=== PATIENT | female | born 1935 | race Caucasian/White ===

== ENCOUNTER 2016-04-21 12:50 | Observation (INO) | payer MEDICARE, OTHER ==
[2016-04-21] MEDS ORDERED: INFLUENZA ADLT QUAD (36MOS+) 2016-17 VAC 0.5 ML SYR IM PRN (13:34)
[2016-04-21] MEDS ORDERED: FUROSEMIDE INJ/PF 40 MG/4 ML SDV IV ONE (14:00)
[2016-04-21] MEDS ORDERED: DEXTROSE 40% GEL 15 GM TUBE PO PRN (14:21)
[2016-04-21] MEDS ORDERED: DEXTROSE 40% GEL 15 GM TUBE X 2 PO PRN (14:21)
[2016-04-21] MEDS ORDERED: DEXTROSE 50%-WATER SYRINGE 12.5 GM/25 ML DOSE IV PRN (14:21)
[2016-04-21] MEDS ORDERED: INSULIN LISPRO 100 UNIT/ML 3 ML VIAL SUBCUT PRN (14:21)
[2016-04-21] MEDS ORDERED: GLUCAGON,HUMAN RECOMB 1 MG INJ IM PRN (14:21)
[2016-04-21] MEDS ORDERED: DEXTROSE 50%-WATER SYRINGE 25 GM/50 ML DOSE IV PRN (14:21)
[2016-04-21] MEDS ORDERED: LANSOPRAZOLE 30 MG TAB.RAP.DR PO ONE (15:00)
[2016-04-21] MEDS ORDERED: ENOXAPARIN SODIUM INJ 40 MG/0.4 ML DISP.SYRIN SUBCUT ONE (15:00)
[2016-04-21 15:07] LABS: ABSOLUTE EOSINOPHILS # (AUTO) 0.3 10^3/uL (0.0-0.6); ABSOLUTE LYMPHOCYTES (AUTO) 1.9 10^3/uL (0.5-4.7); ABSOLUTE MONOCYTES (AUTO) 0.6 10^3/uL (0.1-1.4); ABSOLUTE NEUT (AUTO) 5.7 10^3/uL (1.7-8.2); BASOPHILS % (AUTO) 0.6 % (0-2); EOSINOPHILS % (AUTO) 3.3 % (0-6); HEMOGLOBIN 11.2 g/dL (12.0-15.5); HGB HCT DIFFERENCE -1.4; LYMPHOCYTES % (AUTO) 22.4 % (13-45); MEAN CORPUSCULAR HEMOGLOBIN 25.8 pg (27.0-33.4); MEAN CORPUSCULAR HGB CONC 32.1 g/dL (32.0-36.0); MEAN CORPUSCULAR VOLUME 80 fl (80-97); MONOCYTES % (AUTO) 6.6 % (3-13); RED BLOOD COUNT 4.36 10^6/uL (3.72-5.28); RED CELL DISTRIBUTION WIDTH 16.2 % (11.5-14.0); SEGMENTED NEUTROPHILS % (AUTO) 67.1 % (42-78); WHITE BLOOD COUNT 8.4 10^3/uL (4.0-10.5)
[2016-04-21 15:20] LABS: ALANINE AMINOTRANSFERASE 40 U/L (9-52); ALBUMIN 3.8 g/dL (3.5-5.0); ALKALINE PHOSPHATASE 74 U/L (38-126); ANION GAP 12 (5-19); ASPARTATE AMINO TRANSFERASE 31 U/L (14-36); BILIRUBIN,TOTAL 0.5 mg/dL (0.2-1.3); BLOOD UREA NITROGEN 30 mg/dL (7-20); CALCIUM 9.8 mg/dL (8.4-10.2); CARBON DIOXIDE 28 mmol/L (22-30); CHLORIDE 105 mmol/L (98-107); CREATININE RESULT 0.69 mg/dL (0.52-1.25); GLUCOSE 118 mg/dL (75-110); POTASSIUM 4.3 mmol/L (3.6-5.0); TOTAL PROTEIN 7.1 g/dL (6.3-8.2)
[2016-04-21 15:22] LABS: PROTHROMBIN TIME 13.4 SEC (11.4-15.4)
[2016-04-21 15:23] LABS: PARTIAL THROMBOPLASTIN TIME 25.7 SEC (23.5-35.8)
[2016-04-21] MEDS ORDERED: ALBUTEROL SULFATE HFA (90 MCG/PUFF) 200 PUFF/8.5 GM MDI IH PRN (16:41)
--- NOTE | 2016-04-21 17:13 | PDOC H&P ---
History of Present Illness Admission Date/PCP: 04/21/16 12:50 ISABELL ALVAREZ Patient complains of: Shortness of breath History of Present Illness: BLAZE SAENZ is a 81 year old female who presented to office earlier today with complain of worsening shortness of breath with minimal exertion and associated bilateral leg swelling more than usual. Patient reported associated postural dizziness. Patient reported worsening of her leg swelling mostly during the daytime. She has history of COPD and ambulate with straight cane. Past Medical History Cardiac Medical History: Reports: Hypertension Pulmonary Medical History: Reports: Chronic Obstructive Pulmonary Disease (COPD) Endocrine Medical History: Reports: Diabetes Mellitus Type 2 Malignancy Medical History: Reports: Breast Cancer Psychiatric Medical History: Denies: Depression Past Surgical History Past Surgical History: Reports: Cholecystectomy, Other - bilateral cataract Social History Smoking Status: Never Smoker Frequency of Alcohol Use: None Hx Recreational Drug Use: No Drugs: None Hx Prescription Drug Abuse: No Family History Family History: Reviewed & Not Pertinent Parental Family History Reviewed: Yes Children Family History Reviewed: Yes Sibling(s) Family History Reviewed.: Yes Medication/Allergy Home Medications: Albuterol Sulfate [Proair HFA Inhalation Aerosol 8.5 gm MDI] 2 puff IH Q6HP PRN 04/21/16 Aspirin [Aspirin EC] 81 mg PO DAILY 04/21/16 Budesonide/Formoterol Fumarate [Symbicort HFA 160-4.5 mcg Inhaler 6 gm] 2 puff IH BID 04/21/16 Diclofenac Sodium [Voltaren] 2 gm TOP QID 04/21/16 Etodolac [Lodine] 400 mg PO BID 04/21/16 Fenofibrate Nanocrystallized [Tricor 145 mg Tablet] 145 mg PO QHS 04/21/16 Insulin Glargine,Hum.rec.anlog [Lantus] 40 units SQ BID 04/21/16 Levocetirizine Dihydrochloride [Xyzal 5 mg Tablet] 5 mg PO DAILY 04/21/16 Melatonin 5 mg PO QHS 04/21/16 Olmesartan Medoxomil [Benicar] 20 mg PO DAILY 04/21/16 Sophia-3 Acid Ethyl Esters [Lovaza 1 gm Capsule] 1 gm PO BID 04/21/16 Pravastatin Sodium [Pravachol] 40 mg PO DAILY 04/21/16 Allergies/Adverse Reactions: No Known Allergies Allergy (Unverified 09/04/13 21:09) Review of Systems Constitutional: ABSENT: chills, fever(s), headache(s), weight gain, weight loss Eyes: PRESENT: other - bilateral lower eye lid edema. ABSENT: visual disturbances Ears: PRESENT: hearing changes Nose, Mouth, and Throat: ABSENT: as per HPI, headache(s), mouth pain, sore throat, vertigo, other Cardiovascular: PRESENT: dyspnea on exertion, edema, orthropnea. ABSENT: as per HPI, chest pain, palpitations, other Respiratory: PRESENT: dyspnea. ABSENT: as per HPI, cough, hemoptysis, sputum, other Gastrointestinal: ABSENT: as per HPI, abdominal pain, bloating, coffee ground emesis, constipation, diarrhea, dysphagia, heartburn, hematemesis, hematochezia , melena, nausea, vomiting, other Genitourinary: ABSENT: as per HPI, difficulty urinating, dysuria, hematuria, nocturia, other Musculoskeletal: PRESENT: deformity, joint swelling Integumentary: ABSENT: as per HPI, diaphoresis, erythema, lesions, pruritus, rash, wounds, other Neurological: PRESENT: abnormal gait - ambulate with cane assistance, weakness - generalized. Psychiatric: ABSENT: as per HPI, anxiety, depression, hallucinations, homidical ideation, suicidal ideation, other Endocrine: ABSENT: as per HPI, cold intolerance, flushing, heat intolerance, menstrual abnormalities, polydipsia, polyphagia, polyuria, other Hematologic/Lymphatic: ABSENT: as per HPI, easy bleeding, easy bruising, lymphadenopathy, other Allergic/Immunologic: ABSENT: as per HPI, seasonal rhinorrhea, other Physical Exam Vital Signs: Temp Pulse Resp BP Pulse Ox 97.6 F 85 20 153/74 H 99 04/21/16 14:12 04/21/16 14:12 04/21/16 14:12 04/21/16 14:12 04/21/16 14:12 Intake & Output 04/20/16 04/21/16 04/22/16 06:59 06:59 06:59 Intake Total 4 Balance 4 General appearance: PRESENT: cooperative, mild distress. ABSENT: no acute distress, disheveled, hard of hearing, morbidly obese, obese, severe distress, thin, well-developed, well-nourished, other Head exam: PRESENT: atraumatic, normocephalic Eye exam: PRESENT: conjunctiva pink, EOMI, PERRLA. ABSENT: scleral icterus Ear exam: PRESENT: normal external ear exam Mouth exam: PRESENT: moist, tongue midline Neck exam: PRESENT: full ROM. ABSENT: carotid bruit, JVD, lymphadenopathy, thyromegaly Respiratory exam: PRESENT: crackles - scattered, decreased breath sounds - bibasilar, rales - dry Cardiovascular exam: PRESENT: irregular rhythm - intermittent, systolic murmur. ABSENT: bradycardia, clicks, diastolic murmur, gallop, RRR, rubs, +S1, +S2, tachycardia, other Murmur grade: 3 GI/Abdominal exam: PRESENT: normal bowel sounds, soft. ABSENT: distended, guarding, mass, organolmegaly, rebound, tenderness Extremities exam: PRESENT: full ROM, joint swelling, pedal edema, tenderness. ABSENT: left AKA, right AKA, left BKA, right BKA, calf tenderness, other Musculoskeletal exam: PRESENT: ambulatory - with cane assistance, deformity - due to joint involvement with degenerative osteoarthritis Neurological exam: PRESENT: alert, abnormal gait - ambulate with straight cane asssictance, CN II-XII grossly intact Psychiatric exam: PRESENT: appropriate affect, normal mood. ABSENT: homicidal ideation, suicidal ideation Skin exam: PRESENT: dry, intact, warm. ABSENT: cyanosis, rash Results Laboratory Results: 04/21/16 14:55 04/21/16 14:55 04/21/16 04/21/16 14:55 14:55 WBC 8.4 RBC 4.36 Hgb 11.2 L Hct 35.0 L MCV 80 MCH 25.8 L MCHC 32.1 RDW 16.2 H Plt Count 332 Seg Neutrophils % 67.1 Lymphocytes % 22.4 Monocytes % 6.6 Eosinophils % 3.3 Basophils % 0.6 Absolute Neutrophils 5.7 Absolute Lymphocytes 1.9 Absolute Monocytes 0.6 Absolute Eosinophils 0.3 Absolute Basophils 0.0 Sodium 145.0 Potassium 4.3 Chloride 105 Carbon Dioxide 28 Anion Gap 12 BUN 30 H Creatinine 0.69 Est GFR ( Amer) > 60 Est GFR (Non-Af Amer) > 60 Glucose 118 H Calcium 9.8 Total Bilirubin 0.5 AST 31 ALT 40 Alkaline Phosphatase 74 Total Protein 7.1 Albumin 3.8 04/21/16 14:55 NT-Pro-B Natriuret Pep 248 Impressions: Chest X-Ray 04/21/16 13:54 IMPRESSION: No acute findings in the chest. Assessment & Plan - Diagnosis (1) Acute systolic CHF (congestive heart failure) Is this a current diagnosis for this admission?: YesPlan: see admitting physician orders. (2) HTN (hypertension) Qualifiers: Hypertension type: essential hypertension Qualified Code(s): I10 - Essential (primary) hypertension Is this a current diagnosis for this admission?: YesPlan: see admitting physician orders. (3) Diabetes mellitus type 2 in obese Is this a current diagnosis for this admission?: YesPlan: see admitting physician orders. (4) HLD (hyperlipidemia) Qualifiers: Hyperlipidemia type: pure hypercholesterolemia Qualified Code(s): E78.00 - Pure hypercholesterolemia, unspecified; E78.0 - Pure hypercholesterolemia Is this a current diagnosis for this admission?: YesPlan: see admitting physician orders. 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
[2016-04-21] MEDS: OMEGA-3 ACID ETHYL ESTERS 1 GM CAPSULE PO SCH (18:28)
[2016-04-21] MEDS: BUDESONIDE/FORMOTEROL 160-4.5 MCG 60 PUFF/6 GM MDI IH SCH (18:29)
[2016-04-21] MEDS ORDERED: ATORVASTATIN CALCIUM 10 MG TABLET PO ONE (19:00)
[2016-04-21] MEDS ORDERED: CETIRIZINE 5 MG TABLET PO ONE (19:00)
[2016-04-21] MEDS ORDERED: LOSARTAN POTASSIUM 50 MG TABLET PO ONE (19:00)
[2016-04-21] MEDS ORDERED: (PENDING PHARMACY ID) (Melatonin [Melatonin] 5 MG) PO SCH (22:00)
[2016-04-21] MEDS: ATORVASTATIN CALCIUM 10 MG TABLET PO SCH (23:20)
[2016-04-21] MEDS: FENOFIBRATE NANOCRYSTALLIZED 145 MG TABLET PO SCH (23:21)
[2016-04-21] MEDS: INSULIN GLARGINE,HUM.REC.ANLOG 1,000 UNIT/10 ML UNIT SUBCUT SCH (23:26)
[2016-04-22 07:20] LABS: ABSOLUTE EOSINOPHILS # (AUTO) 0.3 10^3/uL (0.0-0.6); ABSOLUTE LYMPHOCYTES (AUTO) 1.6 10^3/uL (0.5-4.7); ABSOLUTE MONOCYTES (AUTO) 0.6 10^3/uL (0.1-1.4); ABSOLUTE NEUT (AUTO) 4.5 10^3/uL (1.7-8.2); BASOPHILS % (AUTO) 0.7 % (0-2); EOSINOPHILS % (AUTO) 4.5 % (0-6); HEMATOCRIT 35.5 % (36.0-47.0); HEMOGLOBIN 11.1 g/dL (12.0-15.5); HGB HCT DIFFERENCE -2.2; LYMPHOCYTES % (AUTO) 23.1 % (13-45); MEAN CORPUSCULAR HEMOGLOBIN 25.1 pg (27.0-33.4); MEAN CORPUSCULAR HGB CONC 31.3 g/dL (32.0-36.0); MEAN CORPUSCULAR VOLUME 80 fl (80-97); MONOCYTES % (AUTO) 8.4 % (3-13); RED BLOOD COUNT 4.42 10^6/uL (3.72-5.28); RED CELL DISTRIBUTION WIDTH 16.3 % (11.5-14.0); SEGMENTED NEUTROPHILS % (AUTO) 63.3 % (42-78)
[2016-04-22 07:34] LABS: ANION GAP 10 (5-19); BLOOD UREA NITROGEN 29 mg/dL (7-20); CALCIUM 9.9 mg/dL (8.4-10.2); CARBON DIOXIDE 30 mmol/L (22-30); CHLORIDE 107 mmol/L (98-107); CREATININE RESULT 0.67 mg/dL (0.52-1.25); GLUCOSE 134 mg/dL (75-110); POTASSIUM 3.9 mmol/L (3.6-5.0); SODIUM 146.9 mmol/L (137-145)
[2016-04-22] MEDS ORDERED: ENOXAPARIN SODIUM INJ 40 MG/0.4 ML DISP.SYRIN SUBCUT SCH (08:00)
--- NOTE | 2016-04-22 08:32 | EKG REPORT ---
SEVERITY:- ABNORMAL ECG - SINUS RHYTHM FIRST DEGREE AV BLOCK RBBB AND LAFB PROBABLE LEFT VENTRICULAR HYPERTROPHY : Confirmed by: Esteban Mosqueda MD 22-Apr-2016 08:31:03
--- NOTE | 2016-04-22 08:45 | PDOC PROGRESS REPORT ---
Subjective Progress Note for:: 04/22/16 Subjective:: Patient reported poor sleep pattern overnight related to lack of access to her Melatonin. Shortness of breath do persist, particularly with efforts. Denied any chest pain. No nausea, vomiting, or abdominal pain. No fever or chills. Physical Exam Vital Signs: Temp Pulse Resp BP Pulse Ox 97.6 F 81 17 134/57 H 99 04/22/16 05:13 04/22/16 07:00 04/22/16 05:13 04/22/16 05:13 04/22/16 05:13 Intake & Output 04/21/16 04/22/16 04/23/16 06:59 06:59 06:59 Intake Total 477 Output Total 2150 Balance -1673 Weight 71 kg General appearance: PRESENT: no acute distress Head exam: PRESENT: atraumatic, normocephalic Eye exam: PRESENT: conjunctiva pink, EOMI, PERRLA. ABSENT: scleral icterus Mouth exam: PRESENT: moist Neck exam: PRESENT: full ROM. ABSENT: carotid bruit, JVD, lymphadenopathy, thyromegaly Respiratory exam: PRESENT: crackles - at lung bases, decreased breath sounds - at lung bases. ABSENT: accessory muscle use, chest wall tenderness, clear to auscultation pop, prolonged expiratory phas, rales, retraction, rhonchi, stridor , symmetrical, tachypnea, unlabored, wheezes, other Cardiovascular exam: PRESENT: RRR. ABSENT: diastolic murmur, rubs, systolic murmur Murmur grade: 3 GI/Abdominal exam: PRESENT: normal bowel sounds, soft. ABSENT: distended, guarding, mass, organolmegaly, rebound, tenderness Extremities exam: PRESENT: full ROM, pedal edema - more to feet and lower 4th of legs Musculoskeletal exam: PRESENT: ambulatory - with cane prior to admission, deformity - severe with multiple joints involvement Neurological exam: PRESENT: alert, awake, oriented to person, oriented to place , oriented to time, oriented to situation, CN II-XII grossly intact. ABSENT: motor sensory deficit Psychiatric exam: PRESENT: appropriate affect, normal mood. ABSENT: homicidal ideation, suicidal ideation Skin exam: PRESENT: dry, intact, warm. ABSENT: cyanosis, rash Results Laboratory Results: 04/22/16 06:56 04/22/16 06:56 04/21/16 04/21/16 04/22/16 14:55 14:55 06:56 WBC 8.4 7.0 RBC 4.36 4.42 Hgb 11.2 L 11.1 L Hct 35.0 L 35.5 L MCV 80 80 MCH 25.8 L 25.1 L MCHC 32.1 31.3 L RDW 16.2 H 16.3 H Plt Count 332 313 Seg Neutrophils % 67.1 63.3 Lymphocytes % 22.4 23.1 Monocytes % 6.6 8.4 Eosinophils % 3.3 4.5 Basophils % 0.6 0.7 Absolute Neutrophils 5.7 4.5 Absolute Lymphocytes 1.9 1.6 Absolute Monocytes 0.6 0.6 Absolute Eosinophils 0.3 0.3 Absolute Basophils 0.0 0.0 Sodium 145.0 Potassium 4.3 Chloride 105 Carbon Dioxide 28 Anion Gap 12 BUN 30 H Creatinine 0.69 Est GFR ( Amer) > 60 Est GFR (Non-Af Amer) > 60 Glucose 118 H Calcium 9.8 Total Bilirubin 0.5 AST 31 ALT 40 Alkaline Phosphatase 74 Total Protein 7.1 Albumin 3.8 04/22/16 06:56 WBC RBC Hgb Hct MCV MCH MCHC RDW Plt Count Seg Neutrophils % Lymphocytes % Monocytes % Eosinophils % Basophils % Absolute Neutrophils Absolute Lymphocytes Absolute Monocytes Absolute Eosinophils Absolute Basophils Sodium 146.9 H Potassium 3.9 Chloride 107 Carbon Dioxide 30 Anion Gap 10 BUN 29 H Creatinine 0.67 Est GFR ( Amer) > 60 Est GFR (Non-Af Amer) > 60 Glucose 134 H Calcium 9.9 Total Bilirubin AST ALT Alkaline Phosphatase Total Protein Albumin 04/21/16 14:55 NT-Pro-B Natriuret Pep 248 Impressions: Chest X-Ray 04/21/16 13:54 IMPRESSION: No acute findings in the chest. Assessment & Plan - Diagnosis (1) Acute systolic CHF (congestive heart failure) Is this a current diagnosis for this admission?: YesPlan: Less likely cause of her SOB in view of her workup so far. see admitting physician orders. Follow up on echocardiogram findings. (2) HTN (hypertension) Qualifiers: Hypertension type: essential hypertension Qualified Code(s): I10 - Essential (primary) hypertension Is this a current diagnosis for this admission?: YesPlan: see attending physician orders. (3) Diabetes mellitus type 2 in obese Is this a current diagnosis for this admission?: YesPlan: see attending physician orders. (4) HLD (hyperlipidemia) Qualifiers: Hyperlipidemia type: pure hypercholesterolemia Qualified Code(s): E78.00 - Pure hypercholesterolemia, unspecified; E78.0 - Pure hypercholesterolemia Is this a current diagnosis for this admission?: Yes (5) Degenerative joint disease involving multiple joints on both sides of body Is this a current diagnosis for this admission?: YesPlan: see attending physician orders. PT evaluation for ambulatory safety. (6) COPD (chronic obstructive pulmonary disease) Is this a current diagnosis for this admission?: YesPlan: see attending physician orders. Start on Spiriva HandiHaler 5mg po daily. Obtain ambulatory pulse oximetry to determine need for supplemental oxygen upon discharge. 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
[2016-04-22] MEDS: OMEGA-3 ACID ETHYL ESTERS 1 GM CAPSULE PO SCH ×2 (09:36→18:14)
[2016-04-22] MEDS: LOSARTAN POTASSIUM 50 MG TABLET PO SCH (09:37)
[2016-04-22] MEDS: ASPIRIN 81 MG TABLET, ENT COATED PO SCH (09:37)
[2016-04-22] MEDS: LANSOPRAZOLE 30 MG TAB.RAP.DR PO SCH (09:37)
[2016-04-22] MEDS: INSULIN GLARGINE,HUM.REC.ANLOG 1,000 UNIT/10 ML UNIT SUBCUT SCH (09:37)
[2016-04-22] MEDS: BUDESONIDE/FORMOTEROL 160-4.5 MCG 60 PUFF/6 GM MDI IH SCH ×2 (09:38→18:14)
[2016-04-22] MEDS: ENOXAPARIN SODIUM INJ 40 MG/0.4 ML DISP.SYRIN SUBCUT SCH (09:38)
[2016-04-22] MEDS: CETIRIZINE 5 MG TABLET PO SCH (09:39)
[2016-04-22] MEDS ORDERED: (PENDING PHARMACY ID) (Olmesartan Medoxomil [Benicar] 20 MG) PO SCH (10:00)
[2016-04-22] MEDS ORDERED: (PENDING PHARMACY ID) (Levocetirizine Dihydrochloride [Xyzal 5 Mg Tablet] 5 MG) PO SCH (10:00)
[2016-04-22] MEDS ORDERED: (PENDING PHARMACY ID) (Pravastatin Sodium [Pravachol] 40 MG) PO SCH (10:00)
[2016-04-22] MEDS: TIOTROPIUM BROMIDE DPI 5 CAP/KIT (18 MCG/CAP) IH SCH (11:37)
--- NOTE | 2016-04-22 18:49 | XCELERA REPORT ---
[address] [address] Transthoracic Echocardiogram Report Name: BLAZE SAENZ Age: 81 yrs Gender: Female : 1935 Patient Status: Inpatient Patient Location: [id number]\S\428\S\A Study Date: 04/22/2016 08:59 AM Height: 63 in Weight: 156 lb BSA: 1.7 m2 Procedure: A complete two-dimensional transthoracic echocardiogram was performed (2D, M-mode, spectral and color flow Doppler). The study was technically adequate with some images being suboptimal in quality. Reason For Study: chf Ordering Physician: ISABELL ALVAREZ Performed By: Luz Esquivel Interpretation Summary The left ventricular ejection fraction is normal. There is mild concentric left ventricular hypertrophy. The left ventricle is grossly normal size. Doppler measurements suggest pseudonormalized left ventricular relaxation, which is associated with grade II/IV or mild to moderate diastolic dysfunction Wall motion cannot be accurately commented on, but no definite regional wall motion abnormalities noted. The right ventricle is borderline dilated. The right ventricular systolic function is normal. Borderline left atrial enlargement. The right atrium is normal in size There is a trace amount of mitral regurgitation There is no mitral valve stenosis. No aortic regurgitation is present. There is no aortic valve stenosis There is a trace or physiologic amount of tricuspid regurgitation Tricuspid regurgitation jet envelope not well defined to measure RV systolic pressure accurately. There is no pericardial effusion. MMode/2D Measurements \T\ Calculations RVDd: 2.7 cm LVIDd: 4.1 cmFS: 31.9 % Ao root diam: 3.7 cm IVSd: 1.2 cm LVIDs: 2.8 cmEDV(Teich): 74.8 ml LVPWd: 1.1 cmESV(Teich): 29.6 ml Ao root area: 10.5 cm2 EF(Teich): 60.4 % LA dimension: 3.5 cm LVOT diam: 1.8 cm LVOT area: 2.6 cm2 Doppler Measurements \T\ Calculations MV E max larisa: MV P1/2t max larisa: Ao V2 max: LV V1 max P.4 cm/sec 89.5 cm/sec 152.0 cm/sec 4.9 mmHg MV A max larisa: MV P1/2t: 38.9 msec Ao max PG: LV V1 max: 131.8 cm/sec MVA(P1/2t): 5.7 cm2 9.2 mmHg 110.6 cm/sec MV E/A: 0.67 MV dec slope: MARIA DOLORES(V,D): 1.9 cm2 673.5 cm/sec2 MV dec time: 0.13 sec PA V2 max: TR max larisa: 100.7 cm/sec 243.0 cm/sec PA max P.1 mmHgTR max P.6 mmHg Left Ventricle The left ventricle is grossly normal size. There is mild concentric left ventricular hypertrophy. The left ventricular ejection fraction is normal. Doppler measurements suggest pseudonormalized left ventricular relaxation, which is associated with grade II/IV or mild to moderate diastolic dysfunction. Wall motion cannot be accurately commented on, but no definite regional wall motion abnormalities noted. Right Ventricle The right ventricle is borderline dilated. There is normal right ventricular wall thickness. The right ventricular systolic function is normal. Atria The right atrium is normal in size. Borderline left atrial enlargement. Interarterial septum not well visualized and not well dopplered. Cannot comment on ASD/PFO presence. Mitral Valve There is mild mitral leaflet calcification. There is no mitral valve stenosis. There is a trace amount of mitral regurgitation. Aortic Valve The aortic valve is grossly normal. There is no aortic valve stenosis. No aortic regurgitation is present. Tricuspid Valve The tricuspid valve is not well visualized, but is grossly normal. There is no tricuspid stenosis. There is a trace or physiologic amount of tricuspid regurgitation. Tricuspid regurgitation jet envelope not well defined to measure RV systolic pressure accurately. Pulmonic Valve The pulmonic valve is not well visualized. Great Vessels The aortic root is not well visualized but is probably normal size. The inferior vena cava was not well visualized. Effusions There is no pericardial effusion. : ISABELL ALVAREZ > Hi Gunn
[2016-04-22] MEDS: ATORVASTATIN CALCIUM 10 MG TABLET PO SCH (21:55)
[2016-04-22] MEDS: FENOFIBRATE NANOCRYSTALLIZED 145 MG TABLET PO SCH (21:55)
[2016-04-22] MEDS: INSULIN GLARGINE,HUM.REC.ANLOG 300 UNIT/3 ML INSULN.PEN SUBCUT SCH (21:55)
[2016-04-22] MEDS ORDERED: INSULIN GLARGINE,HUM.REC.ANLOG 1,000 UNIT/10 ML UNIT SUBCUT SCH (22:00)
--- NOTE | 2016-04-23 08:48 | PDOC DISCHARGE SUMMARY ---
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 Is this a current diagnosis for this admission?: Yes (6) COPD (chronic obstructive pulmonary disease) Is this a current diagnosis for this admission?: Yes - Additional Information Discharge Diet: Cardiac, Diabetic Discharge Activity: Activity As Tolerated, Balance Activity w/Rest, Weigh Daily Home Medications: Albuterol Sulfate [Proair HFA Inhalation Aerosol 8.5 gm MDI] 2 puff IH Q6HP PRN 04/21/16 Aspirin [Aspirin EC] 81 mg PO DAILY 04/21/16 Budesonide/Formoterol Fumarate [Symbicort HFA 160-4.5 mcg Inhaler 6 gm] 2 puff IH BID 04/21/16 Diclofenac Sodium [Voltaren] 2 gm TOP QID 04/21/16 Etodolac [Lodine] 400 mg PO BID 04/21/16 Fenofibrate Nanocrystallized [Tricor 145 mg Tablet] 145 mg PO QHS 04/21/16 Insulin Glargine,Hum.rec.anlog [Lantus] 40 units SQ BID 04/21/16 Levocetirizine Dihydrochloride [Xyzal 5 mg Tablet] 5 mg PO DAILY 04/21/16 Melatonin 5 mg PO QHS 04/21/16 Olmesartan Medoxomil [Benicar] 20 mg PO DAILY 04/21/16 [place]-3 Acid Ethyl Esters [Lovaza 1 gm Capsule] 1 gm PO BID 04/21/16 Pravastatin Sodium [Pravachol] 40 mg PO DAILY 04/21/16 Tiotropium Whiteside [Spiriva Respimat] 2 pfu IH DAILY #1 inhaler 04/23/16 Physical Exam Vital Signs: Temp Pulse Resp BP Pulse Ox 98.0 F 71 16 139/65 H 100 04/23/16 07:30 04/23/16 07:30 04/23/16 07:30 04/23/16 07:30 04/23/16 07:30 Pulse Oximeter Ambulatory Start: 04/22/16 08: 45 Freq: ONCE Status: Complete Document 04/22/16 08:45 [facility] (Rec: 04/22/16 10:00 [facility] [email or web address]) Exercise Oximetry Treatment Ambulating SpO2 Charge Now Yes Oxygen Delivery Method Room Air FIO2 (% Oxygen) 21 Recovery O2 Saturation by Pulse Oximetry 95 Pulse Rate 92 Respiratory Rate 21 Exercise O2 Saturation by Pulse Oximetry 90 Pulse Rate 101 Respiratory Rate 24 Resting O2 Saturation by Pulse Oximetry 93 Pulse Rate 90 Respiratory Rate 18 Oximetry Exercise Interval (min) 0 Ambulation Distance (ft) 0 Exercise Tolerance Poor Additional RT Notes Other Patient was placed on room air for assessment and was found to be 93% 02 Sat/HR 90. Patient was asked to sit up in bed and stand if possible. Patient was able to sit up on side of bed; however, upon standing she immediately complained of pain and was crying (02 Saturation 90%/ HR101). Patient was placed back in the bed and she requested the oxygen to be placed back on (02 Saturation 95%/HR 92). Was not able to properly assessed this patient by walking. Patient further indicated she does not do too much walking around in her home. Intake & Output 04/22/16 04/23/16 04/24/16 06:59 06:59 06:59 Intake Total 477 606 Output Total 2150 3248 Yvophqo -6130 -1305 Weight 71 kg 71 kg Murmur grade: 3 Results Laboratory Results: 04/22/16 06:56 04/22/16 06:56 04/21/16 14:55 NT-Pro-B Natriuret Pep 248 Impressions: Chest X-Ray 04/21/16 13:54 IMPRESSION: No acute findings in the chest.
[2016-04-23] MEDS: BUDESONIDE/FORMOTEROL 160-4.5 MCG 60 PUFF/6 GM MDI IH SCH (10:17)
[2016-04-23] MEDS: LOSARTAN POTASSIUM 50 MG TABLET PO SCH (10:18)
[2016-04-23] MEDS: LANSOPRAZOLE 30 MG TAB.RAP.DR PO SCH (10:19)
[2016-04-23] MEDS: OMEGA-3 ACID ETHYL ESTERS 1 GM CAPSULE PO SCH (10:19)
[2016-04-23] MEDS: CETIRIZINE 5 MG TABLET PO SCH (10:19)
[2016-04-23] MEDS: ASPIRIN 81 MG TABLET, ENT COATED PO SCH (10:19)
[2016-04-23] MEDS: TIOTROPIUM BROMIDE DPI 5 CAP/KIT (18 MCG/CAP) IH SCH (10:20)
[2016-04-23] MEDS: INSULIN GLARGINE,HUM.REC.ANLOG 300 UNIT/3 ML INSULN.PEN SUBCUT SCH (10:21)
[2016-04-23] MEDS: ENOXAPARIN SODIUM INJ 40 MG/0.4 ML DISP.SYRIN SUBCUT SCH (10:21)
--- NOTE | 2016-04-23 15:26 | PDOC DISCHARGE SUMMARY ---
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 Is this a current diagnosis for this admission?: Yes (6) COPD (chronic obstructive pulmonary disease) Is this a current diagnosis for this admission?: Yes - Additional Information Discharge Diet: Cardiac, Diabetic Discharge Activity: Activity As Tolerated, Balance Activity w/Rest, Weigh Daily Home Medications: Albuterol Sulfate [Proair HFA Inhalation Aerosol 8.5 gm MDI] 2 puff IH Q6HP PRN 04/21/16 Aspirin [Aspirin EC] 81 mg PO DAILY 04/21/16 Budesonide/Formoterol Fumarate [Symbicort HFA 160-4.5 mcg Inhaler 6 gm] 2 puff IH BID 04/21/16 Diclofenac Sodium [Voltaren] 2 gm TOP QID 04/21/16 Etodolac [Lodine] 400 mg PO BID 04/21/16 Fenofibrate Nanocrystallized [Tricor 145 mg Tablet] 145 mg PO QHS 04/21/16 Insulin Glargine,Hum.rec.anlog [Lantus] 40 units SQ BID 04/21/16 Levocetirizine Dihydrochloride [Xyzal 5 mg Tablet] 5 mg PO DAILY 04/21/16 Melatonin 5 mg PO QHS 04/21/16 Olmesartan Medoxomil [Benicar] 20 mg PO DAILY 04/21/16 [place]-3 Acid Ethyl Esters [Lovaza 1 gm Capsule] 1 gm PO BID 04/21/16 Pravastatin Sodium [Pravachol] 40 mg PO DAILY 04/21/16 Tiotropium [place] [Spiriva Respimat] 2 pfu IH DAILY #1 inhaler 04/23/16 History of Present Illness Patient complains of: Shortness of breath and bilateral leg swelling History of Present Illness: BLAZE SAENZ is a 81 year old female who presented to office earlier today with complain of worsening shortness of breath with minimal exertion and associated bilateral leg swelling more than usual. Patient reported associated postural dizziness. Patient reported worsening of her leg swelling mostly during the daytime. She has history of COPD and ambulate with straight cane. Hospital Course Hospital Course: Patient did respond to initial IV furosemide administration with improvement in her SOB. Her laboratory workup did not support consideration of CHF as etiology of her symptoms. She was managed subsequently as worsening COPD. Her ambulatory pulse oximetry without supplemental oxygen confirmed hypoxemia with improvement upon availability of supplemental oxygen. She will be discharged home with supplemental oxygen, particularly, for nocturnal usage and with needs on exertion. I did add Spiriva Respimat 2 inhalation daily to her medication management. Physical Exam Vital Signs: Temp Pulse Resp BP Pulse Ox 98.4 F 84 18 130/63 H 96 04/23/16 11:32 04/23/16 11:32 04/23/16 11:32 04/23/16 11:32 04/23/16 11:32 Pulse Oximeter Ambulatory Start: 04/22/16 08: 45 Freq: ONCE Status: Complete Document 04/22/16 08:45 [facility] (Rec: 04/22/16 10:00 [facility] [email or web address]) Exercise Oximetry Treatment Ambulating SpO2 Charge Now Yes Oxygen Delivery Method Room Air FIO2 (% Oxygen) 21 Recovery O2 Saturation by Pulse Oximetry 95 Pulse Rate 92 Respiratory Rate 21 Exercise O2 Saturation by Pulse Oximetry 90 Pulse Rate 101 Respiratory Rate 24 Resting O2 Saturation by Pulse Oximetry 93 Pulse Rate 90 Respiratory Rate 18 Oximetry Exercise Interval (min) 0 Ambulation Distance (ft) 0 Exercise Tolerance Poor Additional RT Notes Other Patient was placed on room air for assessment and was found to be 93% 02 Sat/HR 90. Patient was asked to sit up in bed and stand if possible. Patient was able to sit up on side of bed; however, upon standing she immediately complained of pain and was crying (02 Saturation 90%/ HR101). Patient was placed back in the bed and she requested the oxygen to be placed back on (02 Saturation 95%/HR 92). Was not able to properly assessed this patient by walking. Patient further indicated she does not do too much walking around in her home. Intake & Output 04/22/16 04/23/16 04/24/16 06:59 06:59 06:59 Intake Total 477 606 400 Output Total 2150 1800 400 Balance -2343 -1194 0 Weight 71 kg 71 kg Physical Exam: General appearance: PRESENT: no acute distress Head exam: PRESENT: atraumatic, normocephalic Eye exam: PRESENT: conjunctiva pink, EOMI, PERRLA. ABSENT: scleral icterus Mouth exam: PRESENT: moist Neck exam: PRESENT: full ROM. ABSENT: carotid bruit, JVD, lymphadenopathy, thyromegaly Respiratory exam: PRESENT: crackles - at lung bases, decreased breath sounds - at lung bases. ABSENT: accessory muscle use, chest wall tenderness, clear to auscultation pop, prolonged expiratory phas, rales, retraction, rhonchi, stridor , symmetrical, tachypnea, unlabored, wheezes, other Cardiovascular exam: PRESENT: RRR. ABSENT: diastolic murmur, rubs, systolic murmur Murmur grade: 3 GI/Abdominal exam: PRESENT: normal bowel sounds, soft. ABSENT: distended, guarding, mass, organolmegaly, rebound, tenderness Extremities exam: PRESENT: full ROM, pedal edema - improved. more to feet and lower 4th of legs Musculoskeletal exam: PRESENT: ambulatory - with cane prior to admission, deformity - severe with multiple joints involvement Neurological exam: PRESENT: alert, awake, oriented to person, oriented to place , oriented to time, oriented to situation, CN II-XII grossly intact. ABSENT: motor sensory deficit Psychiatric exam: PRESENT: appropriate affect, normal mood. ABSENT: homicidal ideation, suicidal ideation Skin exam: PRESENT: dry, intact, warm. ABSENT: cyanosis, rash Murmur grade: 3 Results Laboratory Results: 04/22/16 06:56 04/22/16 06:56 04/21/16 14:55 NT-Pro-B Natriuret Pep 248 Impressions: Chest X-Ray 04/21/16 13:54 IMPRESSION: No acute findings in the chest. Qualifiers PATEINT BEING DISCHARGED WITH ANY OF THE FOLLOWING DIAGNOSIS?: No Plan Discharge Plan: Patient will be discharge home today with [facility] and supplemental oxygen. She will follow up in the office as instructed upon discharge. Time Spent: Less than 30 Minutes
[2016-04-23 16:20] VITALS: BP 132/65
== END 2016-04-23 16:50 | disposition home health service (06) ==
LOC: 4S 12:50 → INTOOBSV 12:50
PROVIDERS: ADMIT Internal Medicine Geriatric Medicine; ATTEND Internal Medicine Geriatric Medicine
DX: I50.23 Acute on chronic systolic (congestive) heart failure (principal); I10 Essential (primary) hypertension; E11.9 Type 2 diabetes mellitus without complications; E78.00 Pure hypercholesterolemia, unspecified; M15.9 Polyosteoarthritis, unspecified; J44.9 Chronic obstructive pulmonary disease, unspecified; Z79.82 Long term (current) use of aspirin; Z79.899 Other long term (current) drug therapy; Z79.4 Long term (current) use of insulin; Z85.3 Personal history of malignant neoplasm of breast; Z90.49 Acquired absence of other specified parts of digestive tract; Z23 Encounter for immunization; Z68.27 Body mass index [BMI] 27.0-27.9, adult
CPT/HCPCS: 36415 ×2; 82962 ×3; 85025 ×2; 85610; 85730; 80048; 80053; 83880; 93306; 71020; 90686; 93005; 93010; 94761; G0378 ×3; G0379; A9270 ×19; J3490 ×3; J1940; J1650 ×3; J1815

== ENCOUNTER 2016-07-12 14:34 | Emergency (ER) | payer MEDICARE, OTHER ==
--- NOTE | 2016-07-12 17:29 | ER Document Report ---
ED Medical Screen (RME) - General Mode of Arrival: Wheelchair Information source: Patient, Relative TRAVEL OUTSIDE OF THE [place] IN LAST 30 DAYS: No - HPI Onset: Last week Onset/Duration: Gradual, Constant Quality of pain: Achy, Dull Severity: Mild Associated Symptoms: Leg swelling, Shortness of breath. denies: Chills, Cough ( productive), Cough (nonproductive), Fever Exacerbated by: Denies Relieved by: Denies Similar symptoms previously: Yes Recently seen / treated by doctor: Yes - Related Data Smoking: Non-smoker Frequency of alcohol use: None Drug Abuse: None <MAXIMO MARQUEZ - Last Filed: 07/12/16 17:24> <BEBO ARIAS - Last Filed: 07/12/16 22:43> - General Chief Complaint: Pedal Edema Stated Complaint: BLOOD PRESSURE PROBLEMS - HPI Context: Patient has history of CHF. Saw PCP in office last week and was told the swelling gets any worse to come to the emergency department. She presents today complaining of worsening swelling and increasing shortness of breath, especially with exertion. (MAXIMO MARQUEZ) - Related Data Allergies/Adverse Reactions: No Known Allergies Allergy (Verified 07/12/16 15:05) Past Medical History - General Information source: Patient, Relative - Social History Cigarette use (# per day): No Chew tobacco use (# tins/day): No Frequency of alcohol use: None Drug Abuse: None Lives with: Family Family history: None - Past Medical History Cardiac Medical History: Reports: Hx Congestive Heart Failure, Hx Hypertension Pulmonary Medical History: Reports: Hx COPD Endocrine Medical History: Reports: Hx Diabetes Mellitus Type 2 Renal/ Medical History: Reports: None. Denies: Hx Peritoneal Dialysis Malignancy Medical History: Reports: Hx Breast Cancer GI Medical History: Reports: None Musculoskeltal Medical History: Reports Hx Arthritis Psychiatric Medical History: Reports: None Denies: Hx Depression Past Surgical History: Reports: Hx Breast Surgery - left mastectomy, Hx Cholecystectomy, Other - bilateral cataract <MAXIMO MARQUEZ - Last Filed: 07/12/16 17:24> Review of Systems - Review of Systems Constitutional: Weakness EENT: No symptoms reported Cardiovascular: See HPI Respiratory: See HPI Gastrointestinal: No symptoms reported <MAXIMO MARQUEZ - Last Filed: 07/12/16 17:24> Physical Exam - Vital signs Interpretation: Tachypneic. No: Tachycardic, Febrile - General General appearance: Appears well, Alert In distress: None - HEENT Head: Normocephalic Eyes: Normal Conjunctiva: Normal Ears: Normal Nasal: Normal Mouth/Lips: Normal Mucous membranes: Normal - Respiratory Respiratory status: No respiratory distress Breath sounds: Decreased air movement - BILAT. BASES - Cardiovascular Rhythm: Regular Heart sounds: Normal auscultation Murmur: No - Extremities General upper extremity: Normal inspection General lower extremity: Edema - 2+ BILAT. <MAXIMO MARQUEZ - Last Filed: 07/12/16 17:24> Course - Laboratory Result Diagrams: 07/12/16 17:40 07/12/16 17:40 <BEBO ARIAS - Last Filed: 07/12/16 22:43> - Vital Signs Vital signs: Temp Pulse Resp BP Pulse Ox 98.3 F 85 24 H 108/55 L 96 07/12/16 15:08 07/12/16 15:08 07/12/16 15:08 07/12/16 15:08 07/12/16 15:08 - Laboratory Laboratory results interpreted by me: 07/12/16 07/12/16 07/12/16 17:40 17:40 17:40 RBC 3.64 L Hgb 9.6 L Hct 30.4 L MCH 26.3 L MCHC 31.5 L RDW 15.5 H Plt Count 498 H Sodium 145.8 H Carbon Dioxide 34 H BUN 39 H Creatine Kinase 24 L NT-Pro-B Natriuret Pep 485 H Doctor's Discharge <MAXIMO MARQUEZ - Last Filed: 07/12/16 17:24> <BEBO ARIAS - Last Filed: 07/12/16 22:43> - Discharge Clinical Impression: Pedal edema Congestive heart failure Qualifiers: Congestive heart failure type: unspecified congestive heart failure type Congestive heart failure chronicity: chronic Qualified Code(s): I50.9 - Heart failure, unspecified Condition: Good Disposition: HOME, SELF-CARE Additional Instructions: Please take the Lasix, new pill I have prescribed for you today, every day as written on the bottle. This medication will make you urinate frequently. Please have your family members help you go to the bathroom so that you do not fall. Please make an appointment to see Dr. Kelley this or Tuesday for reevaluation and for recheck of your labs. You should start to feel better and have improvement of your swelling within the next 24 hours. If you ever feel you are getting worse you must return to the ER. Please return to the ER immediately if you develop worsening difficulty breathing, increasing swelling, chest pain, or feel that you are worsening in any way. Prescriptions: Furosemide [Lasix] 40 mg PO DAILY #14 tablet
[2016-07-12 18:18] LABS: ABSOLUTE BASOPHILS # (AUTO) 0.1 10^3/uL (0.0-0.2); ABSOLUTE EOSINOPHILS # (AUTO) 0.5 10^3/uL (0.0-0.6); ABSOLUTE LYMPHOCYTES (AUTO) 2.2 10^3/uL (0.5-4.7); ABSOLUTE MONOCYTES (AUTO) 0.9 10^3/uL (0.1-1.4); ABSOLUTE NEUT (AUTO) 4.7 10^3/uL (1.7-8.2); BASOPHILS % (AUTO) 0.7 % (0-2); EOSINOPHILS % (AUTO) 5.7 % (0-6); HEMATOCRIT 30.4 % (36.0-47.0); HEMOGLOBIN 9.6 g/dL (12.0-15.5); HGB HCT DIFFERENCE -1.6; LYMPHOCYTES % (AUTO) 26.3 % (13-45); MEAN CORPUSCULAR HEMOGLOBIN 26.3 pg (27.0-33.4); MEAN CORPUSCULAR HGB CONC 31.5 g/dL (32.0-36.0); MEAN CORPUSCULAR VOLUME 84 fl (80-97); MONOCYTES % (AUTO) 10.5 % (3-13); RED BLOOD COUNT 3.64 10^6/uL (3.72-5.28); RED CELL DISTRIBUTION WIDTH 15.5 % (11.5-14.0); SEGMENTED NEUTROPHILS % (AUTO) 56.8 % (42-78); WHITE BLOOD COUNT 8.3 10^3/uL (4.0-10.5)
--- NOTE | 2016-07-12 18:21 | EKG REPORT ---
SEVERITY:- ABNORMAL ECG - SINUS RHYTHM ATRIAL PREMATURE COMPLEX RBBB AND LAFB PROBABLE LEFT VENTRICULAR HYPERTROPHY : Confirmed by: Esteban Mosqueda MD 12-Jul-2016 18:20:53
[2016-07-12 18:33] LABS: ALANINE AMINOTRANSFERASE 35 U/L (9-52); ALBUMIN 3.6 g/dL (3.5-5.0); ALKALINE PHOSPHATASE 69 U/L (38-126); ANION GAP 11 (5-19); ASPARTATE AMINO TRANSFERASE 30 U/L (14-36); BILIRUBIN,DIRECT 0.4 mg/dL (0.0-0.4); BILIRUBIN,TOTAL 0.5 mg/dL (0.2-1.3); BLOOD UREA NITROGEN 39 mg/dL (7-20); CALCIUM 9.9 mg/dL (8.4-10.2); CARBON DIOXIDE 34 mmol/L (22-30); CHLORIDE 101 mmol/L (98-107); CREATINE KINASE 24 U/L (30-135); CREATININE RESULT 0.74 mg/dL (0.52-1.25); GLUCOSE 93 mg/dL (75-110); SODIUM 145.8 mmol/L (137-145); TOTAL PROTEIN 7.7 g/dL (6.3-8.2)
[2016-07-12 18:44] LABS: CREATINE KINASE MB 0.81 ng/mL (<4.55)
[2016-07-12 18:52] LABS: TROPONIN I < 0.012 ng/mL
[2016-07-12] MEDS ORDERED: INSULIN GLARGINE,HUM.REC.ANLOG 1,000 UNIT/10 ML UNIT SUBCUT ONE (20:06)
--- NOTE | 2016-07-12 20:07 | ER Document Report ---
ED Medical Screen (RME) - General Chief Complaint: Pedal Edema Stated Complaint: BLOOD PRESSURE PROBLEMS Mode of Arrival: Wheelchair Notes: pt is demanding to eat a cheeseburger while waiting to be seen here in ER and states she needs 40 units of lantus after eating per her usual routine, dose ordered. TRAVEL OUTSIDE OF THE [place] IN LAST 30 DAYS: No - Related Data Allergies/Adverse Reactions: No Known Allergies Allergy (Verified 07/12/16 15:05) Past Medical History - Social History Cigarette use (# per day): No Chew tobacco use (# tins/day): No Frequency of alcohol use: None Drug Abuse: None Family history: None - Past Medical History Cardiac Medical History: Reports: Hx Congestive Heart Failure, Hx Hypertension Pulmonary Medical History: Reports: Hx COPD Endocrine Medical History: Reports: Hx Diabetes Mellitus Type 2 Renal/ Medical History: Reports: None. Denies: Hx Peritoneal Dialysis Malignancy Medical History: Reports: Hx Breast Cancer GI Medical History: Reports: None Musculoskeltal Medical History: Reports Hx Arthritis Psychiatric Medical History: Reports: None Denies: Hx Depression Past Surgical History: Reports: Hx Breast Surgery - left mastectomy, Hx Cholecystectomy, Other - bilateral cataract Physical Exam - Vital signs Vitals: Temp Pulse Resp BP Pulse Ox 98.3 F 85 24 H 108/55 L 96 07/12/16 15:08 07/12/16 15:08 07/12/16 15:08 07/12/16 15:08 07/12/16 15:08 Course - Vital Signs Vital signs: Temp Pulse Resp BP Pulse Ox 98.3 F 85 24 H 108/55 L 96 07/12/16 15:08 07/12/16 15:08 07/12/16 15:08 07/12/16 15:08 07/12/16 15:08 - Laboratory Result Diagrams: 07/12/16 17:40 07/12/16 17:40 Laboratory results interpreted by me: 07/12/16 07/12/16 07/12/16 17:40 17:40 17:40 RBC 3.64 L Hgb 9.6 L Hct 30.4 L MCH 26.3 L MCHC 31.5 L RDW 15.5 H Plt Count 498 H Sodium 145.8 H Carbon Dioxide 34 H BUN 39 H Creatine Kinase 24 L NT-Pro-B Natriuret Pep 485 H
[2016-07-12] MEDS ORDERED: FUROSEMIDE 40 MG TABLET PO ONE (22:37)
--- NOTE | 2016-07-12 23:04 | ER Document Report ---
ED General - General Chief Complaint: Pedal Edema Stated Complaint: BLOOD PRESSURE PROBLEMS Mode of Arrival: Wheelchair Notes: Patient is an 81-year-old female presents for complaints of some increased edema as well as some orthopnea. She is on 2 L of oxygen at home. She does have one previous admission for potential CHF. At that time she was treated with Lasix for 24 hours and discharged home feeling improved. She does have history of meniscectomy. Patient and her daughter say that she was has increased edema on the right side because of the mastectomy. She denies any fevers. No chest pain. No other complaints at this time. TRAVEL OUTSIDE OF THE [place] IN LAST 30 DAYS: No - Related Data Allergies/Adverse Reactions: No Known Allergies Allergy (Verified 07/12/16 15:05) Past Medical History - General Information source: Patient, Relative - Social History Smoking Status: Former Smoker Cigarette use (# per day): No Chew tobacco use (# tins/day): No Frequency of alcohol use: None Drug Abuse: None Lives with: Family Family History: Reviewed & Not Pertinent Patient has suicidal ideation: No Patient has homicidal ideation: No - Past Medical History Cardiac Medical History: Reports: Hx Congestive Heart Failure, Hx Hypertension Pulmonary Medical History: Reports: Hx COPD Endocrine Medical History: Reports: Hx Diabetes Mellitus Type 2 Renal/ Medical History: Reports: None. Denies: Hx Peritoneal Dialysis Malignancy Medical History: Reports: Hx Breast Cancer GI Medical History: Reports: None Musculoskeltal Medical History: Reports Hx Arthritis Psychiatric Medical History: Reports: None Denies: Hx Depression Past Surgical History: Reports: Hx Breast Surgery - left mastectomy, Hx Cholecystectomy, Other - bilateral cataract - Immunizations Hx Pneumococcal Vaccination: 12/12/14 Review of Systems - Review of Systems Notes: My Normal Review Basic REVIEW OF SYSTEMS: CONSTITUTIONAL : Denies fever, chills, or sweats. Denies recent illness. EENT: Denies eye, ear, throat, or mouth pain or symptoms. Denies nasal or sinus congestion. CARDIOVASCULAR: Denies chest pain. RESPIRATORY: Some orthopnea. GASTROINTESTINAL: Denies abdominal pain. Denies nausea, vomiting, or diarrhea. Denies constipation. Last BM: GENITOURINARY: Denies difficulty urinating, painful urination, burning, frequency, or blood in urine. MUSCULOSKELETAL: Some right-sided edema. SKIN: Denies rash or skin lesions. HEMATOLOGIC : Denies easy bruising or bleeding. LYMPHATIC: Edema right side due to previous mastectomy NEUROLOGICAL: Denies altered mental status or loss of consciousness. Denies headache. Denies weakness or paralysis or loss of use of either side. Denies problems with gait or speech. Denies sensory or motor loss.. ALL OTHER SYSTEMS REVIEWED AND NEGATIVE. Physical Exam - Vital signs Vitals: Temp Pulse Resp BP Pulse Ox 98.3 F 85 24 H 108/55 L 96 07/12/16 15:08 07/12/16 15:08 07/12/16 15:07/12/16 15:07/12/16 15:08 - Notes Notes: General Appearance: Well nourished, alert, cooperative, no acute distress, no obvious discomfort. Well-appearing Vitals: reviewed, See vital signs table. Head: no swelling or tenderness to the head Eyes: PERRL, EOMI, Conjuctiva clear Mouth: No decreasd moisturey Neck: Supple, no neck tenderness, No thyromegaly Lungs: No wheezing, mild bibasal rales, No rhonci, No accessory muscle use, good air exchange bilaterally. No tachypnea. No increased work of breathing. Heart: Normal rate, Regular rythm, No murmur, no rub Abdomen: Normal BS, soft, No rigidity, No abdominal tenderness, No guarding, no rebound, no abdominal masses, no organomegaly Extremities: strength 5/5 in all extremities, good pulses in all extremities, no swelling or tenderness in the extremities, 2+ right-sided lower extremity edema. 1+ left-sided lower extremity edema. Skin: warm, dry, appropriate color, no rash Neuro: speech clear, oriented x 3, normal affect, responds appropriately to questions. Course - Vital Signs Vital signs: Temp Pulse Resp BP Pulse Ox 98.3 F 85 24 H 108/55 L 96 07/12/16 15:08 07/12/16 15:08 07/12/16 15:07/12/16 15:07/12/16 15:08 - Laboratory Result Diagrams: 07/12/16 17:40 07/12/16 17:40 Laboratory results interpreted by me: 07/12/16 07/12/16 07/12/16 17:40 17:40 17:40 RBC 3.64 L Hgb 9.6 L Hct 30.4 L MCH 26.3 L MCHC 31.5 L RDW 15.5 H Plt Count 498 H Sodium 145.8 H Carbon Dioxide 34 H BUN 39 H Creatine Kinase 24 L NT-Pro-B Natriuret Pep 485 H - EKG Interpretation by Me Additional EKG results interpreted by me: 07/12/16 22:59 EKG is reviewed and interpreted by me. EKG shows normal sinus rythm with a rate of [address] segment changes. Patient does have a right bundle branch block. IL interval is within normal range. QRS duration QTC intervals are prolonged. - Transfer of Care Notes: 07/12/16 23:02 Patient looks well my exam. She does have some pulmonary vasular congestion on chest x-ray and mild bibasilar whales; however, she is satting 98 - 100% on her home 2 L nasal cannula of oxygen while she is on the monitor talking to me in the room. She has no increased work of breathing. No chest pain. She does have some increase right lower extremity edema in comparison to left, but this consistent with her history of increased right-sided edema due to her previous history of mastectomy on the right side. At this time I feel the patient is safe to be discharged home. I did discuss the plan with the patient and her daughter that we'll place her on Lasix for next couple days and have her follow- up with Dr. Kelley this week. I did call Dr. Kelley and discussed the plan with him. I did inform and replaced by [place]. He says that he would happily follow-up with the patient this week. I informed the patient and her daughter that she must return to ER immediately if she has any increase work of breathing , any chest pain, any increased edema in her extremities, or she feels that she is worsening in any way. Patient and daughter agree with plan and she will be discharged home. Dictation of this chart was performed using voice recognition software; therefore, there may be some unintended grammatical errors. Discharge - Discharge Clinical Impression: Pedal edema Congestive heart failure Qualifiers: Congestive heart failure type: unspecified congestive heart failure type Congestive heart failure chronicity: chronic Qualified Code(s): I50.9 - Heart failure, unspecified Condition: Good Disposition: HOME, SELF-CARE Additional Instructions: Please take the Lasix, new pill I have prescribed for you today, every day as written on the bottle. This medication will make you urinate frequently. Please have your family members help you go to the bathroom so that you do not fall. Please make an appointment to see Dr. Kelley this or Tuesday for reevaluation and for recheck of your labs. You should start to feel better and have improvement of your swelling within the next 24 hours. If you ever feel you are getting worse you must return to the ER. Please return to the ER immediately if you develop worsening difficulty breathing, increasing swelling, chest pain, or feel that you are worsening in any way. Prescriptions: Furosemide [Lasix] 40 mg PO DAILY #14 tablet
[2016-07-12 23:13] VITALS: BP 147/75
== END 2016-07-12 23:15 | disposition home or self-care (01) ==
LOC: ER 14:34
DX: I11.0 Hypertensive heart disease with heart failure (principal); I50.9 Heart failure, unspecified; I45.10 Unspecified right bundle-branch block; R60.0 Localized edema; R06.01 Orthopnea; E11.9 Type 2 diabetes mellitus without complications; Z85.3 Personal history of malignant neoplasm of breast; J44.9 Chronic obstructive pulmonary disease, unspecified; Z99.81 Dependence on supplemental oxygen; Z87.891 Personal history of nicotine dependence; Z90.13 Acquired absence of bilateral breasts and nipples
CPT/HCPCS: 93005; 99285; 36415; 82553; 82962; 82550; 85025; 80053; 84484; 83880; 71010; 93010; A9270 ×2; J1815